=== PATIENT | male | born 1950 | race Caucasian/White ===

== ENCOUNTER 2022-02-20 00:56 | Observation (INO) | payer OTHER, SELFPAY ==
[2022-02-20] VITALS (32 sets, daily range): BP systolic 117–161; BP diastolic 74–99; PULSE 108–135; RESP 11–29; TEMP 36.6–36.7; O2SAT 88–100; BMI 39.2
--- NOTE | ~2022-02-20 | XR_ITS ---
EXAMINATION: XR chest 1V portable DATE: 02/20/2022 02:37 INDICATION: Altered mental status. TECHNIQUE: A single frontal view of the chest was obtained. COMPARISON: Chest single view 06/01/2013 FINDINGS: There is no pneumonia, pleural effusion, or pneumothorax. Cardiomegaly is noted. Epidural e lectrodes are noted. IMPRESSION: 1. Cardiomegaly. Reviewed, dictated and finalized at location A. IMPRESSION: 1. Cardiomegaly.
--- NOTE | ~2022-02-20 | CT_ITS ---
EXAMINATION: CT brain wo con DATE: 02/20/2022 02:53 INDICATION: Syncope. TECHNIQUE: Computed tomography (CT) of the head was performed without intravenous contrast. The mA wa s adjusted according to patient size. Iterative reconstruction technique was employed. The dose-lengt h product was 681.00 mGy-cm. COMPARISON: Head CT 05/29/2013, brain MRI 05/29/2013 FINDINGS: There is no intracranial hemorrhage, acute infarction, or abnormal intracranial mass lesion . The ventricles are normal in size. There are likely changes of ocular lens replacement surgeries. T here is mild mucosal thickening in the paranasal sinuses. The mastoid air cells are normal. IMPRESSION: 1. Normal brain. Reviewed, dictated and finalized at location A. IMPRESSION: 1. Normal brain.
[2022-02-20] MEDS: HALOPERIDOL LACTATE 5 MG/ML VIAL IM (01:10)
[2022-02-20] MEDS: LORazepam INJ (*CRX) 2 MG/ML VIAL IM (01:10)
--- NOTE | 2022-02-20 01:23 | ECG_ITS ---
Measurements Intervals [place] Rate: 120 P: [place]: 0 QRS: 82 QRSD: 106 T: 14 QT: 337 QTc: 476 Interpretive Statements ATRIAL FIBRILLATION WITH RAPID VENTRICULAR RESPONSE INCOMPLETE RIGHT BUNDLE BRANCH BLOCK LOW QRS VOLTAGE IN PRECORDIAL LEADS ABNORMAL ECG NO PREVIOUS ECG AVAILABLE FOR COMPARISON Electronically Signed On 02-20-2022 6:56:01 CDT by Jimmy Bennett D.O.
[2022-02-20] MEDS: SODIUM CHLORIDE 0.9% IV 1,000 ML 999 ML IV CONT (01:50)
--- NOTE | 2022-02-20 02:03 | ED.GENADULT ---
HPI - General Adult General Chief complaint: Alcohol Stated complaint: ETOH INTOXICATION/PASSED OUT Time Seen by Provider: 02/20/22 00:57 Source: EMS and RN notes reviewed Mode of arrival: EMS Limitations: intoxication History of Present Illness HPI narrative: This is a 71 year old male with history of hypertension, atrial fibrillation, and alcohol abuse who presents for evaluation of alcohol intoxication. EMS states patient has drank 2 bottles of whiskey over past 2 days. They report patient was passed out. EMS states patient was aggressive at the scene and PD was there. Related Data Home Medications Medication Instructions Recorded Confirmed aripiprazole 5 mg tablet 5 mg PO DAILY 02/20/22 02/20/22 celecoxib 200 mg capsule 200 mg PO DAILY 02/20/22 02/20/22 duloxetine 60 mg capsule,delayed 60 mg PO DAILY 02/20/22 02/20/22 release metoprolol tartrate 100 mg tablet 100 mg PO BID 02/20/22 02/20/22 omeprazole 20 mg capsule,delayed 20 mg PO BID 02/20/22 02/20/22 release pregabalin 200 mg capsule 200 mg PO TID 02/20/22 02/20/22 Allergies Allergy/AdvReac Type Severity Reaction Status Date / Time No Known Allergies Allergy Unknown Unverified 09/28/17 11:57 Review of Systems Review of Systems: ROS unobtainable: Yes unobtainable due to mental status PMFSH Past Medical History Medical History (Updated 02/20/22 @ 09:42 by Jasmin Baer MD) Atrial fibrillation BPH (benign prostatic hyperplasia) GERD (gastroesophageal reflux disease) Hypertension Seizures Surgical History Surgical History History of appendectomy Family History Family History (Updated 02/20/22 @ 05:57 by SHUBHAM Reed) Mother Cancer Grandparent Cerebrovascular accident Social History Social History (Updated 02/20/22 @ 06:07 by SHUBHAM Reed) Social History: Patient currently lives at home with his Kimberly. I would suspect this would be his surrogate. Patient is currently a full code. Smoking status: Never smoker Alcohol intake: current Alcohol use details: unknown, strong history of ETOH abuse Substance use: unknown Living arrangements: with family Occupation/Education: retired Gender identity (if verbalized by the patient): Male Sexual Orientation (if Verbalized by the Patient): Straight or Heterosexual Spiritual care concerns: No Agree to blood products: Yes Exam Const: General: alert Nutritional Appearance: obese Limitations: behavioral limitations HENMT: Head: normal to inspection Face and sinus: normal facial exam Mouth: Yes Normal oral and palatal mucosa present Eyes: Pupils: Equal, round and reactive pupils present EOM: EOMs intact bilaterally Neck: Neck: normal visual inspection Chest: Chest palpation & inspection: normal inspection of the chest Resp: Effort & Inspection: tachypneic Auscultation: clear to auscultation bilaterally and no crackles Cardio: Rate: tachycardic Rhythm: abnormal rhythm Heart sounds: no murmurs GI: GI Palp: Yes Soft to palpation, No Tenderness to palpation present (GI), No Guarding due to palpation present (GI) and No Rigid due to palpation Auscultation: normal bowel sounds Skin: General skin exam: normal color Rashes: no rashes Wounds: no wounds Neuro: General: moves all extremities Extrem: General: normal to inspection Psych: Appearance: disheveled Speech and movement: Psychomotor agitation in speech present Attitude: Belligerent attititude/behavior present Judgement: Poor judgement present (Psych) Course Reevaluation(s) Reevaluation #1: Patient presented aggressive, belligerent, intoxicated. He had to be chemically restrained with haldol 5 mg IV and ativan 2 mg IV. He eventually calmed down. He is currently now alert and oriented and cooperative. He has been placed on diltiazem drip. Date: 02/20/22 Time: 04:00 Reevaluation #2: Douglas choudhury
[2022-02-20 02:05] LABS: Alanine Aminotransferase 34 U/L (6-50); Albumin Level 5.2 g/dL (3.5-5.1); Alkaline Phosphatase 132 U/L (38-126); Anion Gap 24 mmol/L (8-16); Aspartate Amino Transferase 56 U/L (17-59); Bilirubin,Total 0.7 mg/dL (0.2-1.3); Blood Urea Nitrogen 12 mg/dL (9-20); Calcium 8.2 mg/dL (8.4-10.2); Carbon Dioxide 23 mmol/L (22-30); Chloride 98 mmol/L (98-107); Estimated Glomerular Filt Rate > 60; Glucose 113 mg/dL (65-110); INR 1.1; Potassium 4.2 mmol/L (3.4-5.0); Prothrombin Time 13.2 Seconds (11.1-14.7); Sodium 145 mmol/L (137-145)
[2022-02-20 02:06] LABS: Partial Thromboplastin Time 31.2 SECONDS (22.3-36.8)
[2022-02-20 02:15] LABS: Basophils Percent Auto 0.7 % (0.2-1.2); Eosinophils Absolute Auto 0.2 K/mm3 (0-0.3); Eosinophils Percent Auto 3.9 % (0-4.4); Hematocrit 43.6 % (42.0-52.0); Immature Granulocyte Absolute 0.02 K/mm3 (0.00-0.031); Immature Granulocyte Percent A 0.4 % (0-0.5); Lymphocytes Absolute Auto 1.79 K/mm3 (0.9-3.2); Lymphocytes Percent Auto 33.2 % (18.3-44.2); Mean Corpuscular HGB Conc 32.1 g/dl (32-36); Mean Corpuscular Hemoglobin 31.9 pg (26-34); Mean Corpuscular Volume 99.3 fl (80-100); Mean Platelet Volume 12.5 fl (7.4-10.4); Monocytes Absolute Auto 0.5 K/mm3 (0.1-0.6); Monocytes Percent Auto 9.1 % (2.6-8.5); Neutrophils Absolute Auto 2.8 K/mm3 (1.3-6.7); Neutrophils Percent Auto 52.7 % (45.5-73.1); Platelet Count Result 157 k/mm3 (150-375); Red Blood Count 4.39 M/mm3 (4.6-6.20); Red Cell Distribution Width 18.3 % (11.5-14.5); White Blood Count 5.4 K/mm3 (4.5-10.0)
[2022-02-20 02:16] LABS: Lactic Acid Reflex 6.1 mmol/L (0.7-2.0)
[2022-02-20 02:17] LABS: Troponin I < 0.012 ng/mL (0.000-0.034)
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
[2022-02-20 02:45] LABS: Appearance Urine Clear (Clear); Bilirubin Urine Negative (Negative); Blood Urine Trace-lysed (Negative); Color Urine Amber (Yellow); Glucose Urine UA Negative (Negative); Ketones Urine Negative (Negative); Leukocyte Esterase Ur Negative LEU/UL (Negative); Nitrate Urine Negative (Negative); Protein Urine 3+ mg/dL (Negative)
[2022-02-20 02:48] LABS: Mucus Urine Rare /lpf; RBC Urine 0-2 /hpf (0-2); WBC Urine 0-3 /hpf
[2022-02-20 02:54] LABS: Add Urine Microscopic? YES
--- NOTE | 2022-02-20 02:55 | PC.NURSE ---
Pt taken to CT
[2022-02-20 03:02] LABS: Amphetamine Screen Urine Negative (Negative); Barbiturate Screen Urine Negative (Negative); Benzodiazepines Screen Urine Negative (Negative); Cannabinoid Screen Urine Negative (Negative); Cocaine Screen Urine Negative (Negative); Methadone Screen Urine Negative (Negative); Opiate Screen Urine Negative (Negative); Phencyclidine Screen Urine Negative (Negative)
[2022-02-20] MEDS: dilTIAZem HCl INJ 25 MG/5 ML VIAL 10 MG IV PUSH (03:05)
[2022-02-20] MEDS: dilTIAZem 100 MG/100 ML 100 MG/100 ML BAG IV CONT (03:07)
[2022-02-20 04:07] LABS: NT Pro B Type Natriuretic Pept 66 pg/mL (5-100)
[2022-02-20 04:09] LABS: Ethanol 431 mg/dL (<10)
[2022-02-20 04:51] LABS: Reflex Lactic Acid Yes or No Add Lactic
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
[2022-02-20 05:40] LABS: Lactic Acid 3.3 mmol/L (0.7-2.0)
[2022-02-20] MEDS: THIAMINE HCL INJ 100 MG, FOLIC ACID INJ 1 MG, MULTIVITAMINS-12 INJ VIAL 1 5 ML, MULTIVI... IV CONT (06:13)
[2022-02-20 06:24] LABS: SARS-CoV-2 RNA PCR Negative
[2022-02-20 06:37] LABS: Magnesium 2.2 mg/dL (1.6-2.3)
[2022-02-20 06:45] LABS: Hemoglobin A1C 5.3 % (<5.7)
--- NOTE | 2022-02-20 07:00 | ADMGEN ---
This patient, Hoang Navarro, was admitted to IMU Room 206-02. Patient/family oriented to hospital policies and general routines including ID bracelet, bed and alarms, visiting hours, pain management, procedures, bathroom and other care routines, personal items, smoking policy, room service/diet, and visiting hours. Information on how to activate the Rapid Response Team has been discussed. Patient/Family are encouraged to report perceived risks to care and to ask questions if they do not understand what they are told or what they should do.
[2022-02-20 08:42] LABS: Alanine Aminotransferase 35 U/L (6-50); Albumin Level 4.7 g/dL (3.5-5.1); Alkaline Phosphatase 124 U/L (38-126); Anion Gap 19 mmol/L (8-16); Aspartate Amino Transferase 56 U/L (17-59); Bilirubin,Total 0.8 mg/dL (0.2-1.3); Blood Urea Nitrogen 12 mg/dL (9-20); Calcium 7.7 mg/dL (8.4-10.2); Carbon Dioxide 25 mmol/L (22-30); Chloride 101 mmol/L (98-107); Estimated CRCL calculation 109 ml/min; Estimated Glomerular Filt Rate > 60; Glucose 105 mg/dL (65-110); Potassium 4.5 mmol/L (3.4-5.0); Sodium 145 mmol/L (137-145)
[2022-02-20 08:49] LABS: Basophils Percent Auto 0.6 % (0.2-1.2); Eosinophils Absolute Auto 0.2 K/mm3 (0-0.3); Eosinophils Percent Auto 2.4 % (0-4.4); Hematocrit 41.3 % (42.0-52.0); Hemoglobin 12.7 g/dL (14.0-18.0); Immature Granulocyte Absolute 0.06 K/mm3 (0.00-0.031); Immature Granulocyte Percent A 0.9 % (0-0.5); Lymphocytes Absolute Auto 0.92 K/mm3 (0.9-3.2); Mean Corpuscular HGB Conc 30.8 g/dl (32-36); Mean Corpuscular Hemoglobin 31.3 pg (26-34); Mean Corpuscular Volume 101.7 fl (80-100); Mean Platelet Volume 12.5 fl (7.4-10.4); Monocytes Absolute Auto 0.6 K/mm3 (0.1-0.6); Monocytes Percent Auto 8.4 % (2.6-8.5); Neutrophils Absolute Auto 4.8 K/mm3 (1.3-6.7); Neutrophils Percent Auto 73.7 % (45.5-73.1); Platelet Count Result 120 k/mm3 (150-375); Red Blood Count 4.06 M/mm3 (4.6-6.20); Red Cell Distribution Width 18.6 % (11.5-14.5); White Blood Count 6.6 K/mm3 (4.5-10.0)
--- NOTE | 2022-02-20 09:07 | PM.CNCAR ---
Assessment and Plan Assessment and plan (1) Atrial fibrillation with rapid ventricular response: Code(s): I48.91 - Unspecified atrial fibrillation Status: Acute Assessment and Plan: History of what sounds like chronic atrial fibrillation which has been well managed with metoprolol as an outpatient. He presented to the ED with alcohol intoxication and was found to be in atrial fibrillation with RVR in that setting. He has been placed on a diltiazem drip which has provided some rate control. Discontinue diltiazem Will shift him back to his home metoprolol since he is rate controlled well with this PRN IV metoprolol for sustained HR >140bpm Cardiomegaly on CXR, some history of CHF symptoms. Check echo. No a/c due to history of significant hemorrhoidal bleeding. He is also actively drinking alcohol, so likely not appropriate for systemic a/c. Can consider outpatient referral for [facility]AAO. Will review prior cardiology records from the [place] when available. (2) Hypertension: Code(s): I10 - Essential (primary) hypertension Status: Acute Assessment and Plan: Add losartan 25mg daily History of Present Illness History of Present Illness Consult date/time: 02/20/22 09:07 Requesting physician: Jasmin Baer MD Consult reason: atrial fibrillation Reason For Visit: iol Narrative: Mr. Navarro is a 71-year-old male with a medical history of hypertension, atrial fibrillation, and chronic lower back pain. This is a patient who presented to the emergency department via EMS because of alcohol intoxication. He drink two fifths of whiskey over the past 2 days because he has been having a lot of worry and anxiety about his daughter who lives in [place]. Patient states that ordinarily he does not drink that much alcohol. He does have a history atrial fibrillation dating to 2007. Patient states that he has been rate controlled with metoprolol for quite some time. He denies any history cardioversion or other rhythm control strategies. He currently is not on any anticoagulation. He tells me his jde developer took him off of his anticoagulation about 3 years ago because apparently he had recurrent problems with bleeding hemorrhoids in significant anemia because of this. He denies any other cardiac history. He denies palpitations, chest pain, orthopnea. He does endorse dyspnea with exertion which has been he persistent for number of years. Endorses chronic lower extremity edema. In the emergency department his EKG showed atrial fibrillation with rapid ventricular response with a rate of 120 beats per minute. He was placed on diltiazem drip at that time. Review of Systems Constitutional: Constitutional: Denies chills, Denies fever(s), Denies headache(s) and Denies malaise Eyes: Eyes: Denies change in vision ENT: Reports Normal hearing present, Denies dizziness, Denies headache(s) and Denies hearing loss Cardiovascular: Cardiovascular: Denies chest pain, Denies chest pain at rest, Denies chest pain with activity, Denies syncope, Reports pedal edema, Reports leg edema, Denies palpitations, Reports dyspnea and Reports dyspnea on exertion Respiratory: Respiratory: Denies cough, Denies dyspnea, Denies dyspnea on exertion and Denies wheezing Gastrointestinal: Gastrointestinal: Denies abdominal pain, Denies constipation and Denies diarrhea Genitourinary: Genitourinary: Denies hematuria and Denies dysuria Musculoskeletal: Musculoskeletal: Reports back pain, Denies myalgias, Denies arthralgias and Denies muscle cramps Integumentary/Breasts: Skin/Breast: Denies wounds Neurologic: Reports Normal hearing present, Denies confusion, Denies dizziness, Denies syncope and Denies headache(s) Psychiatric: Psychiatric: Denies anxiety, Denies confusion and Denies depression Endocrine: Endocrine: Denies cold intolerance, Denies flushing, Denies heat intolerance and Denies palpitations Hematologic/Lymphatic: Hematologic/Lymphatic:
[2022-02-20] MEDS: HYDROcodone/acetaminophen (*CRX) 5-325 MG TABLET 1 TAB PO (11:32)
[2022-02-20] MEDS: METOPROLOL TARTRATE 50 MG TAB PO (11:33)
[2022-02-20] MEDS: chlordiazePOXIDE (*CRX) 25 MG CAPSULE PO (11:33)
[2022-02-20] MEDS: ENOXAPARIN 40 MG/0.4 ML SYRINGE SUB-Q (11:34)
[2022-02-20] MEDS: FOLIC ACID 1 MG TABLET PO (11:34)
[2022-02-20] MEDS: THIAMINE HCL 100 MG TABLET PO (11:34)
--- NOTE | 2022-02-20 13:29 | PC.NURSE ---
Patient requesting to leave AMA. Patient educated on risks of leaving AMA. Patient verbalized understanding. Patient oriented at this time. AMA paper provided and signed by patient. MD Eliel milan.
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
--- NOTE | 2022-02-27 13:31 | PC.NURSE ---
Blood cx was found to be positive for gram positive cocci in clusters. Spoke to Dr. Julian regarding results. He would like results sent to patient's PCP. 1000 am 02/26. Unable to reach patient. Attempted to call patient. Left message for patient to return call.
--- NOTE | 2022-03-05 07:09 | PC.NURSE ---
unable to reach patient. Patient has not returned phone calls.
--- NOTE | 2022-03-12 09:48 | PC.NURSE ---
Patient returned call. HAs new physician at [facility]. Does not remember name. Gave me fax number. Faxed labs with a detailed note regarding his BC.
== END 2022-02-20 14:24 | disposition left against medical advice (07) ==
LOC: ANHED 01:19 → ANHLDR 05:58 → ANHIMU 06:05
PROVIDERS: Nurse Practitioner; Admitting Provider Internal Medicine; Emergency Provider General Practice; Visit Provider Internal Medicine
DX: F10.229 Alcohol dependence with intoxication, unspecified (principal); Y90.8 Blood alcohol level of 240 mg/100 ml or more; I48.91 Unspecified atrial fibrillation; N40.0 Benign prostatic hyperplasia without lower urinary tract symptoms; K21.9 Gastro-esophageal reflux disease without esophagitis; R00.0 Tachycardia, unspecified; R09.02 Hypoxemia; R14.0 Abdominal distension (gaseous); R74.02 Elevation of levels of lactic acid dehydrogenase [LDH]; I10 Essential (primary) hypertension; I45.10 Unspecified right bundle-branch block; I51.7 Cardiomegaly; R45.6 Violent behavior; Z20.822 Contact with and (suspected) exposure to COVID-19; F43.10 Post-traumatic stress disorder, unspecified; E66.9 Obesity, unspecified; R94.31 Abnormal electrocardiogram [ECG] [EKG]; Z53.29 Procedure and treatment not carried out because of patient's decision for other reasons; Z68.39 Body mass index [BMI] 39.0-39.9, adult; Z86.69 Personal history of other diseases of the nervous system and sense organs; Z79.899 Other long term (current) drug therapy; M54.50 Low back pain, unspecified
CPT/HCPCS: 36415; 70450; 71045; 80053; 80307; 81001; 83036; 83605; 83735; 83880; 84443; 84484; 85025; 85610; 85730; 87040; 87147; 87181; 87186; 93005; 96361; 96365; 96366; 96372; 96375; 99285; A9270; C9803; G0378; J1630; J1650; J2060; J3411; J3475; J7030; U0003; U0005

== ENCOUNTER 2022-07-29 14:11 | Inpatient (IN) | payer OTHER, SELFPAY ==
--- NOTE | ~2022-07-29 | XR_ITS ---
EXAM: XR elbow LT min 3V DATE: 07/29/2022 19:07 HISTORY: elbow injury . COMPARISON: None. FINDINGS: Normal mineralization. No fracture or dislocation. No lytic or blastic lesion. Degenerativ e change at the elbow joint. Scattered enthesopathy. No erosion or periosteal change. Soft tissue swe lling over the olecranon. Linear radiopaque foreign body in the medial forearm soft tissues. Small el bow joint effusion. IMPRESSION: No acute osseous finding detected in in the left elbow, noting that the presence of a sma ll elbow joint effusion may accompany occult radial head fractures. Linear radiopaque foreign body, p ossible needle fragment, in the medial forearm soft tissues. Reviewed, dictated and finalized at location K. ECTOR METAL FABRICATING IMPRESSION: No acute osseous finding detected in in the left elbow, noting that the presence of a small elbow joint effusion may accompany occult radial head fractures. Linear radiopaque foreign body, possible needle fragment, in the med ial forearm soft tissues.
--- NOTE | ~2022-07-29 | XR_ITS ---
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 RESULT: Lines, tubes, and devices: Epidural electrodes over the lower thoracic spine. Vertebroplasty cement at the thoracolumbar junction. Lungs and pleura: Mild senescent change. Emphysematous change. Cardiomediastinal silhouette: Stable. Other: No acute osseous or upper abdominal finding. IMPRESSION: No acute cardiopulmonary process. Reviewed, dictated and finalized at location K. MECHANIC
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
--- NOTE | ~2022-07-29 | US_ITS ---
Limited Abdominal Sonogram: Real-time sonographic imaging of the right upper quadrant was performed. Clinical History: Alcoholism, transaminitis Findings: The liver appears echogenic, with no evidence of mass lesion or bile duct dilatation. It m easures 20.8 cm in length. Main portal vein demonstrates normal direction of flow. The gallbladder is well distended, and contains several small echogenic gallstones. Gallbladder wall is borderline thic kened to 4 mm. The common bile duct measures 4 mm. The visualized pancreas, aorta, and IVC are unrem arkable. Impression: Diffuse fatty infiltration of liver with associated hepatomegaly. Cholelithiasis. Borderline gallbladder wall thickening. Correlate clinically for acute cholecystitis. Consider HIDA s can as indicated. Reviewed, dictated and finalized at location . IC CHARGE NURSE Impression: Diffuse fatty infiltration of liver with associated hepatomegaly. Cholelithiasis. Borderline gallbladder wall thickening. Correlate clinically for acute cholecys titis. Consider HIDA scan as indicated.
--- NOTE | 2022-07-29 14:14 | ECG_ITS ---
Measurements Intervals [place] Rate: 118 P: [place]: 0 QRS: 81 QRSD: 113 T: 23 QT: 336 QTc: 472 Interpretive Statements ATRIAL FIBRILLATION WITH RAPID VENTRICULAR RESPONSE BASELINE ARTIFACT- III, AVR, AVL, AVF, V1 ABNORMAL ECG COMPARED TO ECG 02/20/2022 02:42:24 NO SIGNIFICANT CHANGES Electronically Signed On 07-30-2022 6:32:34 CARE ATTENDANT by Jimmy Bennett D.O.
--- NOTE | 2022-07-29 14:42 | PC.NURSE ---
Pt is intoxicated and uncooperative. Unable to obtain vitals or information. Pt does not want a female nurse touching him. Pt states he is depressed denied SI/HI.
[2022-07-29 15:01] VITALS: BP 161/92; PULSE 112; RESP 15; O2SAT 99
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
--- NOTE | 2022-07-29 16:05 | PC.NURSE ---
SECURITY IN ROOM WITH PT.
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
[2022-07-29] MEDS: SODIUM CHLORIDE 0.9% IV 1,000 ML 999 ML IV CONT (17:43)
[2022-07-29] MEDS: LIDOCAINE HCL 1% PF 30 ML VIAL 5 ML INFILTRATE (17:43)
[2022-07-29] MEDS: LIDOCAINE HCL 1% LOCAL INJ 20 ML VIAL (17:43)
[2022-07-29 18:26] LABS: Basophils Percent Auto 0.3 % (0.2-1.2); Eosinophils Percent Auto 0.4 % (0-4.4); Hematocrit 38.5 % (42.0-52.0); Hemoglobin 12.3 g/dL (14.0-18.0); Immature Granulocyte Absolute 0.03 K/mm3 (0.00-0.031); Immature Granulocyte Percent A 0.4 % (0-0.5); Immature Platelet Fraction Pct 7.1 % (0.9-11.2); Lymphocytes Absolute Auto 0.59 K/mm3 (0.9-3.2); Lymphocytes Percent Auto 8.5 % (18.3-44.2); Mean Corpuscular HGB Conc 31.9 g/dl (32-36); Mean Corpuscular Hemoglobin 32.4 pg (26-34); Mean Corpuscular Volume 101.3 fl (80-100); Monocytes Absolute Auto 0.5 K/mm3 (0.1-0.6); Monocytes Percent Auto 7.2 % (2.6-8.5); Neutrophils Absolute Auto 5.8 K/mm3 (1.3-6.7); Neutrophils Percent Auto 83.2 % (45.5-73.1); Platelet Count Result 71 k/mm3 (150-375)
[2022-07-29 18:52] LABS: Alanine Aminotransferase 65 U/L (6-50); Alkaline Phosphatase 128 U/L (38-126); Anion Gap 20 mmol/L (8-16); Aspartate Amino Transferase 107 U/L (17-59); Bilirubin,Total 2.1 mg/dL (0.2-1.3); Blood Urea Nitrogen 12 mg/dL (9-20); Calcium 8.2 mg/dL (8.4-10.2); Carbon Dioxide 20 mmol/L (22-30); Chloride 94 mmol/L (98-107); Estimated Glomerular Filt Rate > 60; Glucose 93 mg/dL (65-110); Potassium 3.9 mmol/L (3.4-5.0); Sodium 134 mmol/L (137-145)
[2022-07-29 18:53] LABS: Ethanol 318 mg/dL (<10)
--- NOTE | 2022-07-29 18:54 | PC.NURSE ---
pT CONTINUES TO INSULT STAFF WHEN ATTEMPTING TO GO IN AND HELP PATIENT. PT CONTINUES TO STATE HE DOESNT WANT MEN HIS ROOM. SECURITY AT BEDSIDE.
[2022-07-29 19:08] LABS: Influenza A QL RT-PCR Negative (Negative); Influenza B QL RT-PCR Negative (Negative); RSV RNA, RT-PCR Negative (Negative); SARS-CoV-2 RNA PCR Negative
[2022-07-29] MEDS: KETOROLAC 15 MG/ML VIAL (*BKC) IV PUSH (19:23)
[2022-07-29] MEDS: AMOXICILLIN/CLAVULANATE K 875-125 MG TAB 1 TABLET PO (21:01)
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
[2022-07-29 21:36] VITALS: BP 185/87; PULSE 120; RESP 20; TEMP 36.9; O2SAT 98
[2022-07-29 21:37] VITALS: O2SAT 99
[2022-07-29 22:10] VITALS: PULSE 122
--- NOTE | 2022-07-29 22:19 | PC.NURSE ---
This patient, Hoang Navarro, was admitted to 3 Medical Room 344-01. Patient/family oriented to hospital policies and general routines including ID bracelet, bed and alarms, visiting hours, pain management, procedures, bathroom and other care routines, personal items, smoking policy, room service/diet, and visiting hours. Information on how to activate the Rapid Response Team has been discussed. Patient/Family are encouraged to report perceived risks to care and to ask questions if they do not understand what they are told or what they should do. Pt is alcoholic drinking 2 fifths of Kumar Davis daily, He if very anxious and shaking and very suspicious.
[2022-07-29] MEDS: ALPRAZolam (*CRX) 0.25 MG TABLET PO (22:45)
[2022-07-30] VITALS (17 sets, daily range): BP systolic 133–188; BP diastolic 66–92; PULSE 75–126; RESP 16–20; TEMP 36.3–37.3; O2SAT 95–99; BMI 40.8
[2022-07-30] MEDS: METOPROLOL TARTRATE 50 MG TAB 100 MG PO ×3 (00:54→20:21)
[2022-07-30] MEDS: CALCIUM CARBONATE (TUMS) 500 MG (200 MG ELEMENTAL) PO ×3 (00:54→17:13)
[2022-07-30] MEDS: traZODone HCL 50 MG TABLET 100 MG PO ×2 (00:54→20:21)
[2022-07-30 04:05] LABS: Appearance Urine Clear (Clear); Bilirubin Urine 1+ (Negative); Blood Urine Trace-intact (Negative); Color Urine Yellow (Yellow); Glucose Urine UA Negative (Negative); Ketones Urine 4+ mg/dL (Negative); Leukocyte Esterase Ur Negative LEU/UL (Negative); Nitrate Urine Negative (Negative); Protein Urine 2+ mg/dL (Negative); Specific Grav Ur 1.025 (1.001-1.035); Urobilinogen Urine 0.2 mg/dL (<2.0)
[2022-07-30 04:17] LABS: Mucus Urine Rare /lpf; RBC Urine 0-2 /hpf (0-2); WBC Urine 0-3 /hpf
[2022-07-30 04:22] LABS: Add Urine Microscopic? YES
[2022-07-30] MEDS: DEXTROSE 5%/0.45% SOD CHL 1,000 ML 125 ML IV CONT ×2 (05:52→17:10)
[2022-07-30] MEDS: chlordiazePOXIDE (*CRX) 25 MG CAPSULE 50 MG PO ×4 (05:52→23:27)
[2022-07-30] MEDS: PANTOPRAZOLE 40 MG TABLET PO ×2 (05:56→17:10)
[2022-07-30 06:41] LABS: Glucose Point of Care 98 mg/dl (65-105)
[2022-07-30] MEDS: DULoxetine HCL 60 MG CAPSULE.DR PO ×2 (08:23→17:10)
[2022-07-30] MEDS: THIAMINE HCL 200 MG/2 ML VIAL 100 MG IV PUSH (08:23)
[2022-07-30] MEDS: ONDANSETRON INJ 4 MG/2 ML VIAL IV PUSH (08:31)
[2022-07-30 09:11] LABS: Hematocrit 36.2 % (42.0-52.0); Hemoglobin 11.7 g/dL (14.0-18.0); Immature Platelet Fraction Pct 8.7 % (0.9-11.2); Mean Corpuscular HGB Conc 32.3 g/dl (32-36); Mean Corpuscular Hemoglobin 32.1 pg (26-34); Mean Corpuscular Volume 99.2 fl (80-100); Mean Platelet Volume 12.5 fl (7.4-10.4); Platelet Count Result 46 k/mm3 (150-375); Red Blood Count 3.65 M/mm3 (4.6-6.20); Red Cell Distribution Width 15.4 % (11.5-14.5); White Blood Count 6.4 K/mm3 (4.5-10.0)
[2022-07-30] MEDS: LORazepam INJ (*CRX) 2 MG/ML VIAL IV PUSH ×2 (09:11→21:26)
[2022-07-30] MEDS: PREGABALIN (*CRX) 50 MG CAPSULE 200 MG PO ×3 (09:11→17:11)
[2022-07-30 10:05] LABS: Alanine Aminotransferase 68 U/L (6-50); Alkaline Phosphatase 117 U/L (38-126); Anion Gap 14 mmol/L (8-16); Aspartate Amino Transferase 108 U/L (17-59); Bilirubin,Total 3.4 mg/dL (0.2-1.3); Blood Urea Nitrogen 12 mg/dL (9-20); Calcium 8.9 mg/dL (8.4-10.2); Carbon Dioxide 26 mmol/L (22-30); Chloride 89 mmol/L (98-107); Estimated CRCL calculation 124 ml/min; Estimated Glomerular Filt Rate > 60; Glucose 83 mg/dL (65-110); Potassium 2.7 mmol/L (3.4-5.0); Sodium 129 mmol/L (137-145)
[2022-07-30] MEDS: POTASSIUM CHLORIDE 20 MEQ TABLET 40 MEQ PO (12:41)
[2022-07-30 12:45] LABS: Glucose Point of Care 83 mg/dl (65-105)
[2022-07-30] MEDS: POTASSIUM CHLORIDE 20 MEQ TABLET PO (13:16)
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
[2022-07-30 16:51] LABS: Glucose Point of Care 89 mg/dl (65-105)
--- NOTE | 2022-07-30 21:26 | PC.NURSE ---
Patient increasingly restless, up in chair. Pulled out 2 IVs. Experiencing visual hallucinations and very suspicious of staff. Pt placed in bed, reoriented, new IV placed, prn Ativan given.
--- NOTE | 2022-07-30 22:00 | PC.NURSE ---
Pt becoming increasingly verbally aggressive, restless, climbing over rails of bed. Very weak, unable to bear weight or turn self in bed. Suspicious of staff. Call placed to Ha[facility] Montano and order received for 1mg IV Ativan.
[2022-07-30] MEDS: LORazepam INJ (*CRX) 2 MG/ML VIAL 1 MG IV PUSH (22:19)
[2022-07-30 23:32] LABS: Glucose Point of Care 145 mg/dl (65-105)
[2022-07-31] VITALS (11 sets, daily range): BP systolic 115–158; BP diastolic 60–76; PULSE 73–109; RESP 18–22; TEMP 36.6–36.8; O2SAT 95–99
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
[2022-07-31] MEDS: OLANZapine 5 MG, WATER, STERILE FOR INJECTION 2.1 ML IM (00:24)
--- NOTE | 2022-07-31 02:25 | PC.NURSE ---
Pt increasingly agitated, physically and verbally aggressive, unable to place IV, experiencing visual and auditory hallucinations. Call placed to Dr. Culp with order received for 5mg IM haldol.
[2022-07-31] MEDS: HALOPERIDOL LACTATE 5 MG/ML VIAL IM ×2 (02:31→22:50)
[2022-07-31] MEDS: LORazepam INJ (*CRX) 2 MG/ML VIAL IV PUSH ×4 (06:03→22:08)
[2022-07-31 06:21] LABS: Hematocrit 39.1 % (42.0-52.0); Hemoglobin 11.9 g/dL (14.0-18.0); Immature Platelet Fraction Pct 10.4 % (0.9-11.2); Mean Corpuscular HGB Conc 30.4 g/dl (32-36); Mean Corpuscular Hemoglobin 31.6 pg (26-34); Mean Platelet Volume 12.2 fl (7.4-10.4); Platelet Count Result 35 k/mm3 (150-375); Red Blood Count 3.76 M/mm3 (4.6-6.20); Red Cell Distribution Width 15.7 % (11.5-14.5); White Blood Count 4.4 K/mm3 (4.5-10.0)
[2022-07-31 06:27] LABS: Glucose Point of Care 88 mg/dl (65-105)
[2022-07-31 06:34] LABS: Alanine Aminotransferase 60 U/L (6-50); Albumin Level 4.2 g/dL (3.5-5.1); Alkaline Phosphatase 103 U/L (38-126); Anion Gap 7 mmol/L (8-16); Aspartate Amino Transferase 85 U/L (17-59); Bilirubin,Total 1.6 mg/dL (0.2-1.3); Blood Urea Nitrogen 13 mg/dL (9-20); Calcium 9.2 mg/dL (8.4-10.2); Carbon Dioxide 31 mmol/L (22-30); Chloride 98 mmol/L (98-107); Estimated CRCL calculation 101 ml/min; Estimated Glomerular Filt Rate > 60; Glucose 97 mg/dL (65-110); Potassium 3.3 mmol/L (3.4-5.0); Sodium 136 mmol/L (137-145)
[2022-07-31 06:39] LABS: INR 1.1; Prothrombin Time 13.6 Seconds (11.1-14.7)
[2022-07-31 06:58] LABS: Hepatitis B Surface Antigen Negative (Negative)
[2022-07-31 07:04] LABS: HAV RESULT Negative (Negative); Hepatitis B Core IgM Result Negative (Negative)
[2022-07-31 07:16] LABS: Hepatitis C Virus Antibody Negative (Negative)
[2022-07-31 08:16] LABS: Band Neutrophils Percent 7 % (0-6); Basophils Absolute Manual 0.08 K/mm3 (0.0-0.1); Basophils Percent Manual 2 % (0-1); Eosinophils Absolute Manual 0.13 K/mm3 (0.02-0.5); Eosinophils Percent Manual 3 % (0-4); Lymphocytes Absolute Manual 0.52 K/mm3 (1.1-4.5); Monocytes Absolute Manual 0.13 K/mm3 (0.1-0.90); Monocytes Percent Manual 3 % (3-9); Neutrophils Absolute Manual 3.52 K/mm3 (1.3-6.7); Neutrophils Percent Manual 73 % (46-73); Platelet Estimate Decreased (Adequate); Total Cells Counted 100
[2022-07-31 08:17] LABS: Schistocytes None Seen (NORMAL)
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
[2022-07-31 12:26] LABS: Glucose Point of Care 108 mg/dl (65-105)
[2022-07-31] MEDS: DULoxetine HCL 60 MG CAPSULE.DR PO ×2 (13:21→16:53)
[2022-07-31] MEDS: METOPROLOL TARTRATE 50 MG TAB 100 MG PO (13:21)
[2022-07-31] MEDS: THIAMINE HCL 200 MG/2 ML VIAL 100 MG IV PUSH (13:21)
[2022-07-31] MEDS: PREGABALIN (*CRX) 50 MG CAPSULE 200 MG PO ×2 (13:22→16:53)
[2022-07-31] MEDS: chlordiazePOXIDE (*CRX) 25 MG CAPSULE 50 MG PO ×2 (13:22→17:01)
[2022-07-31 16:47] LABS: Glucose Point of Care 99 mg/dl (65-105)
[2022-07-31] MEDS: DEXTROSE 5%/0.45% SOD CHL 1,000 ML 125 ML IV CONT (16:52)
[2022-07-31] MEDS: PANTOPRAZOLE 40 MG TABLET PO (16:53)
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
--- NOTE | 2022-07-31 23:59 | P.PNCROSS_ITS ---
Event Note Event Note Event Note: the patient was given multiple medications for alcohol withdrawal. The patient continues to be aggressive towards the staff. The patient is having visual hallucinations. I did call the liquid yeast supervisor who agrees that the patient should be in ICU on a Precedex drip. I have ordered loading dose as well so drip.
[2022-08-01] VITALS (27 sets, daily range): BP systolic 122–159; BP diastolic 54–94; PULSE 86–124; RESP 18–29; TEMP 36.6–38; O2SAT 83–100
[2022-08-01 00:18] LABS: Glucose Point of Care 127 mg/dl (65-105)
--- NOTE | 2022-08-01 00:40 | PC.NURSE ---
Darling Navarro () notified of patient condition and need to transfer to ICU for medication.
--- NOTE | 2022-08-01 01:03 | PC.NURSE ---
This patient, Hoang Navarro, was received from [facility] on 08/01/22 at 0103. Report received from AHMET Mayberry. Patient/family oriented to unit policies and routines.
[2022-08-01] MEDS: dexmedeTOMIDine 400 MCG/100 ML 400 MCG/100 ML BAG 7.8 MCG IV CONT (01:15)
[2022-08-01] MEDS: DEXTROSE 5%/0.45% SOD CHL 1,000 ML 125 ML IV CONT (01:45)
[2022-08-01 04:10] LABS: Basophils Percent Auto 0.3 % (0.2-1.2); Eosinophils Absolute Auto 0.2 K/mm3 (0-0.3); Eosinophils Percent Auto 5.9 % (0-4.4); Hematocrit 36.5 % (42.0-52.0); Hemoglobin 11.3 g/dL (14.0-18.0); Immature Granulocyte Absolute 0.04 K/mm3 (0.00-0.031); Immature Granulocyte Percent A 1.1 % (0-0.5); Immature Platelet Fraction Pct 12.3 % (0.9-11.2); Lymphocytes Absolute Auto 0.45 K/mm3 (0.9-3.2); Lymphocytes Percent Auto 12.7 % (18.3-44.2); Mean Corpuscular Hemoglobin 31.7 pg (26-34); Mean Corpuscular Volume 102.2 fl (80-100); Mean Platelet Volume 13.2 fl (7.4-10.4); Monocytes Absolute Auto 0.5 K/mm3 (0.1-0.6); Monocytes Percent Auto 13.2 % (2.6-8.5); Neutrophils Absolute Auto 2.4 K/mm3 (1.3-6.7); Neutrophils Percent Auto 66.8 % (45.5-73.1); Platelet Count Result 33 k/mm3 (150-375); Red Blood Count 3.57 M/mm3 (4.6-6.20); Red Cell Distribution Width 15.7 % (11.5-14.5); White Blood Count 3.6 K/mm3 (4.5-10.0)
[2022-08-01 04:27] LABS: Alanine Aminotransferase 60 U/L (6-50); Albumin Level 3.8 g/dL (3.5-5.1); Alkaline Phosphatase 96 U/L (38-126); Anion Gap 6 mmol/L (8-16); Aspartate Amino Transferase 78 U/L (17-59); Blood Urea Nitrogen 16 mg/dL (9-20); Calcium 8.6 mg/dL (8.4-10.2); Carbon Dioxide 32 mmol/L (22-30); Chloride 99 mmol/L (98-107); Estimated CRCL calculation 119 ml/min; Estimated Glomerular Filt Rate > 60; Glucose 125 mg/dL (65-110); Magnesium 1.8 mg/dL (1.6-2.3); Sodium 137 mmol/L (137-145)
[2022-08-01] MEDS: POTASSIUM CHLORIDE INJ 40 MEQ in SODIUM CHLORIDE 0.9% IV 500 ML 130 MEQ IVPB (08:27)
[2022-08-01] MEDS: KCL 20 MEQ/D5/0.45% SOD CHL 1,000 ML 125 ML IV CONT ×2 (08:27→16:23)
[2022-08-01 08:52] LABS: Ammonia 15 umol/L (9-30)
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
[2022-08-01 10:42] LABS: Alveolar/Arterial O2 Gradient 106.3 mmHg; Base Excess ABG 0.9 mEq/l (+/-2.0); Fractional Inspired Oxygen 40 %; HCO3 ABG 27.7 mEq/l (22.0-26.0); Oxygen Content ABG 16.9 %vol (16.0-22.0); Oxygen Saturation ABG 97.9 % (95.0-100.0); Oxyhemoglobin 96.6 % THb (90.0-100.0); PO2 ABG 116.8 mmHg (80.0-100.0); PO2 FiO2 Ratio Arterial Blood 2.92 %; Total Hemoglobin 12.3 g/dL (12.0-18.0); pH ABG 7.328 (7.350-7.450)
[2022-08-01 10:45] LABS: Device SIMPLE MASK; Modified Allen's Test Pass; Site Drawn LEFT RADIAL
[2022-08-01] MEDS: THIAMINE HCL 200 MG/2 ML VIAL 100 MG IV PUSH (10:54)
[2022-08-01 11:57] LABS: Glucose Point of Care 133 mg/dl (65-105)
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
--- NOTE | 2022-08-01 14:43 | PM.EVENT ---
Event Note Event Note Event Note: I just check the results of the ABG done earlier showed mild hypercarbia and acidosis. Patient was on sedatives earlier which have been on hold. I will repeat ABG now and if it is not any better then will try BiPAP for some time until patient's mental status is improved
[2022-08-01 14:55] LABS: Anion Gap 8 mmol/L (8-16); Blood Urea Nitrogen 15 mg/dL (9-20); Calcium 8.2 mg/dL (8.4-10.2); Carbon Dioxide 30 mmol/L (22-30); Chloride 100 mmol/L (98-107); Estimated CRCL calculation 137 ml/min; Estimated Glomerular Filt Rate > 60; Glucose 121 mg/dL (65-110); Potassium 3.7 mmol/L (3.4-5.0); Sodium 138 mmol/L (137-145)
[2022-08-01 14:57] LABS: Alveolar/Arterial O2 Gradient 180.2 mmHg; Base Excess ABG 2.6 mEq/l (+/-2.0); Fractional Inspired Oxygen 40 %; HCO3 ABG 30.8 mEq/l (22.0-26.0); Oxygen Content ABG 16.4 %vol (16.0-22.0); Oxygen Saturation ABG 93.6 % (95.0-100.0); Oxyhemoglobin 93.2 % THb (90.0-100.0); PO2 ABG 77.6 mmHg (80.0-100.0); PO2 FiO2 Ratio Arterial Blood 1.94 %; Total Hemoglobin 12.5 g/dL (12.0-18.0)
[2022-08-01 15:00] LABS: Device VENTURI MASK; Modified Allen's Test Pass; PCO2 ABG 65.8 mmHg (35.0-45.0); Site Drawn LEFT RADIAL; pH ABG 7.288 (7.350-7.450)
[2022-08-01 17:08] LABS: Alveolar/Arterial O2 Gradient 92.7 mmHg; Base Excess ABG 2.7 mEq/l (+/-2.0); Fractional Inspired Oxygen 30 %; Oxygen Content ABG 16.5 %vol (16.0-22.0); Oxygen Saturation ABG 92.9 % (95.0-100.0); Oxyhemoglobin 92.4 % THb (90.0-100.0); PCO2 ABG 51.6 mmHg (35.0-45.0); PO2 ABG 68.4 mmHg (80.0-100.0); PO2 FiO2 Ratio Arterial Blood 2.28 %; Total Hemoglobin 12.7 g/dL (12.0-18.0); pH ABG 7.367 (7.350-7.450)
[2022-08-01 17:11] LABS: Device BIPAP; Modified Allen's Test Pass; Site Drawn LEFT RADIAL
[2022-08-01 17:12] LABS: Expiratory Pressure 7 cmH2O; Inspiratory Pressure 14 cmH2O
[2022-08-01] MEDS: METOPROLOL TARTRATE INJ 5 MG/5 ML VIAL IV PUSH (17:46)
[2022-08-01 17:59] LABS: Glucose Point of Care 109 mg/dl (65-105)
[2022-08-01 23:09] LABS: Glucose Point of Care 97 mg/dl (65-105)
[2022-08-02] VITALS (21 sets, daily range): BP systolic 100–152; BP diastolic 55–94; PULSE 53–118; RESP 18–26; TEMP 35.9–38.3; O2SAT 97–100
[2022-08-02] MEDS: KCL 20 MEQ/D5/0.45% SOD CHL 1,000 ML 125 ML IV CONT (00:27)
[2022-08-02 03:40] LABS: Hematocrit 39.4 % (42.0-52.0); Hemoglobin 12.2 g/dL (14.0-18.0); Immature Platelet Fraction Pct 11.8 % (0.9-11.2); Mean Corpuscular Hemoglobin 32.9 pg (26-34); Mean Corpuscular Volume 106.2 fl (80-100); Mean Platelet Volume 12.4 fl (7.4-10.4); Platelet Count Result 48 k/mm3 (150-375); Red Blood Count 3.71 M/mm3 (4.6-6.20); Red Cell Distribution Width 15.9 % (11.5-14.5); White Blood Count 2.9 K/mm3 (4.5-10.0)
[2022-08-02 04:03] LABS: Alanine Aminotransferase 63 U/L (6-50); Albumin Level 3.9 g/dL (3.5-5.1); Alkaline Phosphatase 97 U/L (38-126); Anion Gap 8 mmol/L (8-16); Aspartate Amino Transferase 76 U/L (17-59); Bilirubin,Total 1.1 mg/dL (0.2-1.3); Blood Urea Nitrogen 12 mg/dL (9-20); Calcium 8.5 mg/dL (8.4-10.2); Carbon Dioxide 29 mmol/L (22-30); Chloride 98 mmol/L (98-107); Estimated CRCL calculation 137 ml/min; Estimated Glomerular Filt Rate > 60; Glucose 117 mg/dL (65-110); Magnesium 1.7 mg/dL (1.6-2.3); Potassium 3.4 mmol/L (3.4-5.0); Sodium 135 mmol/L (137-145)
[2022-08-02 06:01] LABS: Glucose Point of Care 104 mg/dl (65-105)
[2022-08-02 07:57] LABS: Glucose Point of Care 123 mg/dl (65-105)
[2022-08-02] MEDS: DULoxetine HCL 60 MG CAPSULE.DR PO ×2 (08:19→17:00)
[2022-08-02] MEDS: PANTOPRAZOLE 40 MG TABLET PO ×2 (08:19→17:00)
[2022-08-02] MEDS: FOLIC ACID 1 MG/0.2 ML INJ IV PUSH (08:19)
[2022-08-02] MEDS: METOPROLOL TARTRATE 50 MG TAB 100 MG PO ×2 (08:19→21:04)
[2022-08-02] MEDS: THIAMINE HCL 200 MG/2 ML VIAL 100 MG IV PUSH (08:20)
--- NOTE | 2022-08-02 08:28 | WPDINTPN ---
Progress Note: A&P Assessment and Plan (1) Encephalopathy: Code(s): G93.40 - Encephalopathy, unspecified Status: Acute Assessment and Plan: Multifactorial toxic metabolic encephalopathy patient presented with alcohol intoxication, then went to alcohol withdrawal and then received several medications which may have caused over sedation. patient now improved and is alert oriented x3. continue to hold all sedatives. Precedex infusion ordered if patient shows signs of delirium low-dose Seroquel ordered at time hold scheduled benzodiazepines hold Haldol and Zyprexa ammonia and TSH level are normal head CT was negative (2) Thrombocytopenia: Code(s): D69.6 - Thrombocytopenia, unspecified Status: Acute Assessment and Plan: likely secondary to alcohol abuse and possible liver dysfunction no signs of bleeding level is improving monitor transfuse if needed (3) Electrolyte abnormality: Code(s): E87.8 - Other disorders of electrolyte and fluid balance, not elsewhere classified Status: Acute Assessment and Plan: potassium replacement ordered (4) Transaminitis: Code(s): R74.01 - Elevation of levels of liver transaminase levels Status: Acute Assessment and Plan: elevated AST and ALT likely secondary to alcohol liver disease alk-phos is normal and bilirubin has normalized Right upper quadrant ultrasound Diffuse fatty infiltration of liver with associated hepatomegaly. Cholelithiasis. Borderline gallbladder wall thickening. Correlate clinically for acute cholecystitis. Consider HIDA scan as indicated. Viral hepatitis panel is negative Discriminant factor is low monitor (5) Alcohol abuse: Code(s): F10.10 - Alcohol abuse, uncomplicated Status: Acute Assessment and Plan: thiamine and folic acid (6) GERD (gastroesophageal reflux disease): Code(s): K21.9 - Gastro-esophageal reflux disease without esophagitis Status: Acute Assessment and Plan: PPI (7) Atrial fibrillation: Code(s): I48.91 - Unspecified atrial fibrillation Status: Acute Assessment and Plan: continue p.o. metoprolol not on any anticoagulation at baseline likely secondary to heavy alcohol abuse risk of falls and thrombocytopenia monitor p.r.n. IVLopressor ordered (8) Respiratory failure: Code(s): J96.90 - Respiratory failure, unspecified, unspecified whether with hypoxia or hypercapnia Status: Acute Assessment and Plan: patient developed hypercarbic and respiratory failure and respiratory acidosis likely secondary to sedation patient was placed on BiPAP and ABG had improved patient now awake alert oriented and refusing to wear BiPAP monitor wean oxygen check chest x-ray (9) Fever: Code(s): R50.9 - Fever, unspecified Status: Acute Assessment and Plan: check UA urine culture blood culture procalcitonin level chest x-ray remove Flowers catheter could have had aspiration when he was altered empiric Augmentin (10) Left elbow pain: Code(s): M25.522 - Pain in left elbow Status: Acute Assessment and Plan: x-ray reviewed and shows no fracture the linear radiopaque foreign body seen on the x-ray. I examined patient's arm and I did not see any abnormality. 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 Plan DVT prophylaxis - SCDs Stress ulcer prophylaxis - PPI Nutrition - diet is ordered Code Status - Full Code Subjective Date/time seen: 08/02/22 Overnight events reviewed. low-grade fever patient mental status improved overnight and he is much more awake this morning. he took off his BiPAP and refused to wear it aound 4 a.m. he is now AO x3 he states he is hurting in his elbow where he fell but denies any other complain
[2022-08-02] MEDS: AMOXICILLIN/CLAVULANATE K 875-125 MG TAB 1 TABLET PO ×2 (09:43→21:04)
[2022-08-02] MEDS: POTASSIUM CHLORIDE 20 MEQ TABLET 40 MEQ PO (09:43)
[2022-08-02 10:02] LABS: NT Pro B Type Natriuretic Pept 239 pg/mL (19.9-100)
[2022-08-02 10:07] LABS: Appearance Urine Cloudy (Clear); Bacteria Urine None Seen /hpf; Bilirubin Urine 2+ (Negative); Blood Urine 2+ (Negative); Color Urine Dark Yellow (Yellow); Glucose Urine UA Negative (Negative); Ketones Urine Trace mg/dL (Negative); Leukocyte Esterase Ur 1+ LEU/UL (Negative); Need Manual Microscopic Reviewed; Nitrate Urine Negative (Negative); Protein Urine 1+ mg/dL (Negative); RBC Urine 51-100 /hpf (0-2); Specific Grav Ur 1.025 (1.001-1.035); Squamous Epithelial Cell Urine None seen /hpf (Few); pH Urine 6.5 (5.0-9.0)
[2022-08-02 10:16] LABS: Add Urine Microscopic? YES
[2022-08-02 11:36] LABS: Procalcitonin 0.2 ng/mL
[2022-08-02 11:47] LABS: Glucose Point of Care 98 mg/dl (65-105)
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
--- NOTE | 2022-08-02 14:55 | PC.NURSE ---
This patient, Hoang Navarro, was transferred to [facility] on 08/02/22 at 1445. Personal belongings sent with patient. Report given to Laura LEO. Appropriate documentation sent with patient.
--- NOTE | 2022-08-02 15:15 | ADMGEN ---
This patient, Hoang Navarro, was admitted to Medical Room [facility] @1445. Patient/family oriented to hospital policies and general routines including ID bracelet, bed and alarms, visiting hours, pain management, procedures, bathroom and other care routines, personal items, smoking policy, room service/diet, and visiting hours. Information on how to activate the Rapid Response Team has been discussed. Patient/Family are encouraged to report perceived risks to care and to ask questions if they do not understand what they are told or what they should do.
[2022-08-02 17:27] LABS: Glucose Point of Care 105 mg/dl (65-105)
[2022-08-02] MEDS: QUEtiapine FUMARATE 25 MG TABLET PO (21:04)
[2022-08-02] MEDS: LORazepam INJ (*CRX) 2 MG/ML VIAL IV PUSH (23:27)
[2022-08-02 23:28] LABS: Glucose Point of Care 115 mg/dl (65-105)
[2022-08-03] VITALS (13 sets, daily range): BP systolic 110–151; BP diastolic 65–76; PULSE 70–94; RESP 18–20; TEMP 35.8–36.3; O2SAT 96–100
[2022-08-03 05:24] LABS: Hematocrit 34.6 % (42.0-52.0); Hemoglobin 10.8 g/dL (14.0-18.0); Immature Platelet Fraction Pct 13.8 % (0.9-11.2); Mean Corpuscular HGB Conc 31.2 g/dl (32-36); Mean Corpuscular Hemoglobin 32.5 pg (26-34); Mean Corpuscular Volume 104.2 fl (80-100); Mean Platelet Volume 13.2 fl (7.4-10.4); Platelet Count Result 53 k/mm3 (150-375); Red Blood Count 3.32 M/mm3 (4.6-6.20); Red Cell Distribution Width 15.7 % (11.5-14.5); White Blood Count 2.7 K/mm3 (4.5-10.0)
[2022-08-03 05:36] LABS: Alanine Aminotransferase 111 U/L (6-50); Albumin Level 3.5 g/dL (3.5-5.1); Alkaline Phosphatase 91 U/L (38-126); Anion Gap 3 mmol/L (8-16); Aspartate Amino Transferase 143 U/L (17-59); Bilirubin,Total 1.1 mg/dL (0.2-1.3); Blood Urea Nitrogen 11 mg/dL (9-20); Calcium 8.6 mg/dL (8.4-10.2); Carbon Dioxide 30 mmol/L (22-30); Chloride 101 mmol/L (98-107); Estimated CRCL calculation 121 ml/min; Estimated Glomerular Filt Rate > 60; Glucose 106 mg/dL (65-110); Magnesium 1.6 mg/dL (1.6-2.3); Potassium 3.1 mmol/L (3.4-5.0); Sodium 134 mmol/L (137-145)
[2022-08-03] MEDS: METOPROLOL TARTRATE 50 MG TAB 100 MG PO ×2 (10:05→20:47)
[2022-08-03] MEDS: PANTOPRAZOLE 40 MG TABLET PO ×2 (10:05→17:12)
[2022-08-03] MEDS: AMOXICILLIN/CLAVULANATE K 875-125 MG TAB 1 TABLET PO ×2 (10:06→20:47)
[2022-08-03] MEDS: DULoxetine HCL 60 MG CAPSULE.DR PO ×2 (10:06→17:12)
[2022-08-03] MEDS: THIAMINE HCL 200 MG/2 ML VIAL 100 MG IV PUSH (10:07)
[2022-08-03] MEDS: FOLIC ACID 1 MG/0.2 ML INJ IV PUSH (10:07)
[2022-08-03] MEDS: MAGNESIUM SULF 2 GM/WATER 50ML 2 GM/50 ML BAG IVPB (10:07)
[2022-08-03] MEDS: POTASSIUM CHLORIDE 20 MEQ TABLET 40 MEQ PO (10:08)
[2022-08-03 12:25] LABS: Glucose Point of Care 124 mg/dl (65-105)
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
[2022-08-03 19:02] LABS: Glucose Point of Care 106 mg/dl (65-105)
[2022-08-03] MEDS: QUEtiapine FUMARATE 25 MG TABLET PO (20:47)
[2022-08-03 21:53] LABS: Glucose Point of Care 121 mg/dl (65-105)
[2022-08-04] VITALS (8 sets, daily range): BP systolic 104–147; BP diastolic 65–71; PULSE 68–88; RESP 20; TEMP 36.6; O2SAT 97–100
[2022-08-04 05:50] LABS: Hematocrit 35.4 % (42.0-52.0); Hemoglobin 10.8 g/dL (14.0-18.0); Immature Platelet Fraction Pct 16.2 % (0.9-11.2); Mean Corpuscular HGB Conc 30.5 g/dl (32-36); Mean Corpuscular Hemoglobin 32.2 pg (26-34); Mean Corpuscular Volume 105.7 fl (80-100); Mean Platelet Volume 12.7 fl (7.4-10.4); Platelet Count Result 64 k/mm3 (150-375); Red Blood Count 3.35 M/mm3 (4.6-6.20); Red Cell Distribution Width 16.1 % (11.5-14.5); White Blood Count 3.1 K/mm3 (4.5-10.0)
[2022-08-04 05:57] LABS: Alanine Aminotransferase 113 U/L (6-50); Albumin Level 3.6 g/dL (3.5-5.1); Alkaline Phosphatase 87 U/L (38-126); Anion Gap 3 mmol/L (8-16); Aspartate Amino Transferase 123 U/L (17-59); Blood Urea Nitrogen 11 mg/dL (9-20); Calcium 8.7 mg/dL (8.4-10.2); Carbon Dioxide 32 mmol/L (22-30); Chloride 100 mmol/L (98-107); Estimated CRCL calculation 121 ml/min; Estimated Glomerular Filt Rate > 60; Glucose 130 mg/dL (65-110); Magnesium 1.8 mg/dL (1.6-2.3); Potassium 3.5 mmol/L (3.4-5.0); Sodium 135 mmol/L (137-145)
[2022-08-04 06:15] LABS: Glucose Point of Care 131 mg/dl (65-105)
[2022-08-04] MEDS: THIAMINE HCL 200 MG/2 ML VIAL 100 MG IV PUSH (09:54)
[2022-08-04] MEDS: DULoxetine HCL 60 MG CAPSULE.DR PO (09:54)
[2022-08-04] MEDS: AMOXICILLIN/CLAVULANATE K 875-125 MG TAB 1 TABLET PO (09:54)
[2022-08-04] MEDS: PANTOPRAZOLE 40 MG TABLET PO (09:54)
[2022-08-04] MEDS: FOLIC ACID 1 MG/0.2 ML INJ IV PUSH (09:54)
[2022-08-04 12:29] LABS: Glucose Point of Care 123 mg/dl (65-105)
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
[2022-08-04 17:00] LABS: Glucose Point of Care 95 mg/dl (65-105)
== END 2022-08-04 18:00 | disposition home or self-care (01) | DRG 896 ==
LOC: ANHED 19:44 → ANH3MED 21:13 → ANHICU 08-01 01:06 → ANH3MED 08-02 14:52
PROVIDERS: Emergency Medicine; Internal Medicine; Nurse Practitioner; Physician Assistant; Admitting Provider Internal Medicine; Emergency Provider Emergency Medicine; Visit Provider Family Medicine
DX: F10.229 Alcohol dependence with intoxication, unspecified (principal); G92.8 Other toxic encephalopathy; J96.92 Respiratory failure, unspecified with hypercapnia; E87.1 Hypo-osmolality and hyponatremia; K81.0 Acute cholecystitis; F10.239 Alcohol dependence with withdrawal, unspecified; S51.012A Laceration without foreign body of left elbow, initial encounter; R74.01 Elevation of levels of liver transaminase levels; I48.91 Unspecified atrial fibrillation; E87.6 Hypokalemia; K21.9 Gastro-esophageal reflux disease without esophagitis; I10 Essential (primary) hypertension; D69.6 Thrombocytopenia, unspecified; F32.A Depression, unspecified; R50.9 Fever, unspecified; E66.01 Morbid (severe) obesity due to excess calories; Z20.822 Contact with and (suspected) exposure to COVID-19; Z68.38 Body mass index [BMI] 38.0-38.9, adult; Y90.8 Blood alcohol level of 240 mg/100 ml or more; Z91.81 History of falling; W18.30XA Fall on same level, unspecified, initial encounter
CPT/HCPCS: 12001; 36415; 36600; 70450; 71045; 71046; 73080; 76705; 80048; 80053; 80074; 80307; 81001; 82140; 82805; 82948; 83735; 83880; 84145; 84443; 85025; 85027; 85055; 85610; 87040; 87086; 87637; 93005; 94002; 96361; 96365; 96366; 96372; 96375; 96376; 97110; 97161; 97165; 97530; 97535; 99285; A9270; G0378; J0131; J1630; J1885; J2060; J2405; J3411; J3475; J3480; J7030; J7040

== ENCOUNTER 2023-05-06 15:41 | Emergency (ER) | payer OTHER, SELFPAY ==
--- NOTE | ~2023-05-06 | CT_ITS ---
EXAMINATION: CT cervical spine wo con DATE: 05/06/2023 16:51 INDICATION: fall TECHNIQUE: Computed tomography (CT) of the cervical spine was performed without intravenous contrast. Automated exposure control and iterative reconstruction technique were employed. The dose-length pro duct was 583.87 mGy-cm. COMPARISON: None. FINDINGS: Vertebral Body Alignment: Intact. Cervical straightening. Craniocervical and atlantoaxial alignment: Moderate degenerative change. Alignment intact. Osseous structures/fracture: No evidence of a lytic or blastic process in the visualized spine. No e vidence of acute fracture. Bilateral facet fusion at C2-3 and C3-4. Cervical soft tissues: The paraspinal soft tissues planes are maintained. Degenerative changes: Multilevel moderate degenerative disc disease. Severe degenerative disc change at C4-5 with vacuum phenomenon. Multilevel facet arthropathy. IMPRESSION: No acute fracture or traumatic malalignment in the cervical spine. Reviewed, dictated and finalized at location [employer]
--- NOTE | ~2023-05-06 | CT_ITS ---
EXAMINATION: CT brain wo con DATE: 05/06/2023 16:50 INDICATION: fall . TECHNIQUE: Computed tomography (CT) of the head was performed without intravenous contrast. The mA wa s adjusted according to patient size. Iterative reconstruction technique was employed. The dose-lengt h product was 681.00 mGy-cm. COMPARISON: 07/21/2022. FINDINGS: No acute intracranial hemorrhage or extra-axial fluid collection. No hydrocephalus, mass, or herniation. No acute ischemic infarct. Unremarkable dural venous sinus attenuation. No acute osseous abnormality. Large frontal laceration. The aerated spaces are clear. Mild atrophy and chronic white matter change. Atherosclerotic intracranial calcification. Bilateral l ens replacements. IMPRESSION: No acute intracranial process. Reviewed, dictated and finalized at location [facility]. [employer]
[2023-05-06 16:24] VITALS: BP 154/58; PULSE 76; RESP 16; TEMP 36.5; O2SAT 95
--- NOTE | 2023-05-06 19:55 | ED.FALL ---
HPI - Fall General Chief Complaint: Fall Stated Complaint: GLF Time Seen by Provider: 05/06/23 18:57 History of Present Illness HPI Narrative: Patient is a 72-year-old male presenting with head injury. Patient states that he was getting out of his recliner this evening and his ankle got caught causing him to fall forward striking his forehead on the fireplace hearth. he did not lose consciousness. States he sustained a large laceration. No neck or back pain. Denies further injuries. States his tetanus is up-to-date. He is not on anticoagulation. Related Data Home Medications Medication Instructions Recorded Confirmed duloxetine 60 mg capsule,delayed 60 mg PO BID 02/20/22 07/29/22 release metoprolol tartrate 100 mg tablet 100 mg PO BID 02/20/22 07/29/22 omeprazole 20 mg capsule,delayed 20 mg PO BID 02/20/22 07/29/22 release pregabalin 200 mg capsule 200 mg PO TID 07/30/22 07/30/22 Allergies Allergy/AdvReac Type Severity Reaction Status Date / Time No Known Allergies Allergy Unknown Unverified 09/28/17 11:57 Review of Systems Review of Systems: All systems reviewed & are unremarkable except as noted in HPI and below PMFSH Past Medical History Medical History Atrial fibrillation BPH (benign prostatic hyperplasia) GERD (gastroesophageal reflux disease) Hypertension Seizures Surgical History Surgical History History of appendectomy Family History Family History Mother Cancer Grandparent Cerebrovascular accident Social History Social History Social History: Patient currently lives at home with his Kimberly. I would suspect this would be his surrogate. Patient is currently a full code. Smoking status: Never smoker Alcohol intake: current Drinks per week: 60 Alcohol use details: unknown, strong history of ETOH abuse Substance use: unknown Lack of Transportation: No Lack of Food: Never True Current Housing: Decline to Answer Concerned About Future Housing: Decline to Answer Difficulty Paying Gas/Electric Bills: Decline to Answer Difficulty Paying for Meds: Decline to Answer Currently Unemployed: Decline to Answer Education: High School Diploma/GED Difficulty w/ Childcare or Family Care: Decline to Answer Living arrangements: with family Occupation/Education: retired Gender identity (if verbalized by the patient): Male Sexual Orientation (if Verbalized by the Patient): Straight or Heterosexual Spiritual care concerns: No Agree to blood products: Yes Exam Narrative: GENERAL: Well appearing, no acute distress, pleasant cooperative HEAD: Normocephalic, 5 cm laceration upper mid forehead EYES: PERRLA and EOMI. ENT: grossly unremarkable NECK: Supple. no midline tenderness CHEST: No respiratory distress. HEART: Regular rate and rhythm EXTREMITIES: Normal range of motion. SKIN: Warm, dry, no rash. NEURO: Alert and oriented x3. PSYCH: Normal mood and affect. Course Vital Signs Vital signs: Vital Signs Temperature 97.7 F 05/06/23 16:24 Pulse Rate 76 05/06/23 16:24 Respiratory Rate 16 05/06/23 16:24 Blood Pressure 154/58 H 05/06/23 16:24 Pulse Oximetry 95 05/06/23 16:24 Oxygen Delivery Room Air 05/06/23 16:24 Temperature 97.7 F 05/06/23 16:24 Pulse Rate 84 05/06/23 21:58 Respiratory Rate 20 05/06/23 21:58 Blood Pressure 154/58 H 05/06/23 16:24 Pulse Oximetry 100 05/06/23 21:58 Oxygen Delivery Room Air 05/06/23 16:24 Procedures Laceration Laceration 1: Date: 05/06/23 Time: 21:35 Site: scalp and face Size (cm): 5 Description: linear Depth: simple, single layer and involves muscle layer Local Anesthetic: lidoca
[2023-05-06] MEDS: LIDO 1%/EPINEPHRINE 1:100,000 20 ML VIAL (21:53)
[2023-05-06] MEDS: CEPHALEXIN 500 MG CAPSULE PO (21:53)
[2023-05-06 21:58] VITALS: PULSE 84; RESP 20; O2SAT 100
== END 2023-05-06 21:59 | disposition home or self-care (01) ==
PROVIDERS: Emergency Provider Emergency Medicine; PCP Family Medicine
DX: S01.81XA Laceration without foreign body of other part of head, initial encounter (principal); I48.91 Unspecified atrial fibrillation; I10 Essential (primary) hypertension; N40.0 Benign prostatic hyperplasia without lower urinary tract symptoms; K21.9 Gastro-esophageal reflux disease without esophagitis; W06.XXXA Fall from bed, initial encounter
CPT/HCPCS: 12052; 70450; 72125; 99284; A9270

== ENCOUNTER 2023-08-12 02:09 | Day surgery (SDC) | payer OTHER, SELFPAY ==
[2023-08-04 10:41] VITALS: BMI 39.7
--- NOTE | 2023-08-10 09:00 | SUR.OPER ---
Patient called regarding upcoming procedure. Voicemail left regarding appointment times.
[2023-08-12 07:09] VITALS: BP 148/76; PULSE 72; RESP 20; TEMP 35.8; O2SAT 95; BMI 41.5
[2023-08-12] MEDS: LACTATED RINGERS 1,000 ML 150 ML IV CONT (07:12)
--- NOTE | 2023-08-12 08:05 | PM.HPGS ---
History of Present Illness History of Present Illness Consent: Risks, benefits, and alternatives have been discussed and questions answered. Patient agrees to proceed with procedure. Chief complaint: neoplasm screening Narrative: Hoang Navarro is a 72 year old male here for screening colonoscopy, last one about 5 years ago Review of Systems Review of Systems: All systems reviewed & are unremarkable except as noted in HPI and below PMFSH Past Medical History Medical History (Updated 08/12/23 @ 08:06 by Yasmani Pollard MD) Atrial fibrillation BPH (benign prostatic hyperplasia) Colon cancer screening GERD (gastroesophageal reflux disease) Hypertension Seizures Surgical History Surgical History History of appendectomy Family History Family History Mother Cancer Grandparent Cerebrovascular accident Social History Social History Social History: Patient currently lives at home with his Kimberly. I would suspect this would be his surrogate. Patient is currently a full code. Smoking status: Never smoker Smokeless tobacco user: chewing tobacco Additional smoking assessment comments: NEVER SMOKED BUT CHEWED WHILE IN THE Alcohol intake: current Drinks per week: 60 Alcohol use details: unknown, strong history of ETOH abuse Substance use: former Substance use type: does not use Other substance usage details: ETOH HOSP. ADM. 07/31/2022 Lack of Transportation: No Lack of Food: Never True Current Housing: Decline to Answer Concerned About Future Housing: Decline to Answer Difficulty Paying Gas/Electric Bills: Decline to Answer Difficulty Paying for Meds: Decline to Answer Currently Unemployed: Decline to Answer Education: High School Diploma/GED Difficulty w/ Childcare or Family Care: Decline to Answer Living arrangements: with family Occupation/Education: retired Gender identity (if verbalized by the patient): Male Sexual Orientation (if Verbalized by the Patient): Straight or Heterosexual Spiritual care concerns: No Agree to blood products: Yes Meds Home Medications and Allergies Home Medications Medication Instructions Recorded Confirmed Type duloxetine 60 mg capsule,delayed 60 mg PO BID 02/20/22 08/12/23 History release metoprolol tartrate 100 mg tablet 100 mg PO BID 02/20/22 08/12/23 History omeprazole 20 mg capsule,delayed 20 mg PO BID 02/20/22 08/12/23 History release pregabalin 200 mg capsule 200 mg PO TID 07/30/22 08/12/23 History multivitamin with minerals 1 tablet PO DAILY #30 tabs 08/04/22 08/12/23 Rx (Multiple Vitamin-Minerals tablet) Iron 28 mg PO DAILY 08/04/23 08/12/23 History aripiprazole 10 mg tablet 10 mg PO DAILY 08/04/23 08/12/23 History celecoxib 200 mg capsule 200 mg PO BID 08/04/23 08/12/23 History copper 2 mg tablet 2 mg PO DAILY 08/04/23 08/12/23 History cyanocobalamin (vitamin B-12) 1,000 mcg IM MONTHLY 08/04/23 08/12/23 History 1,000 mcg/mL injection solution folic acid 800 mcg tablet 0.8 mg PO DAILY 08/04/23 08/12/23 History pyridoxine (vitamin B6) 100 mg 100 mg PO DAILY 08/04/23 08/12/23 History tablet torsemide 10 mg tablet 10 mg PO DAILY 08/04/23 08/12/23 History Allergies Allergy/AdvReac Type Severity Reaction Status Date / Time No Known Allergies Allergy Unknown Verified 08/12/23 07:07 Vital Signs Vital Signs - 24 hr 08/12/23 07:09 Temperature 96.5 F L Pulse Rate 72 Respiratory Rate 20 Blood Pressure 148/76 H Pulse Oximetry 95 Oxygen Delivery Room Air Exam Const: General: comfortable and no acute distress HENMT: Face/Nose/Sinus: Normal nares present Eyes: General: appearance normal, both eyes and all related structures Neck: Neck: no JVD Resp: Auscultation: clear to auscultation tabatha
--- NOTE | 2023-08-12 08:06 | P.PNAN_ITS ---
Anes - Initial Pre Proc Eval Procedure: Operation Date: 08/12/23 08:30 Proposed Procedures p Screening Colonoscopy - Yasmani Pollard MD Date/Time: 08/12/23 08:06 Surgeon: Yasmani Pollard MD Pre Op Diagnosis: neoplasm screening Patient Data Age: 72 Gender: M Height: 1.96 m Weight: 158.9 kg Last Vital Signs Temp 96.5 F L 08/12/23 07:09 Pulse 72 08/12/23 07:09 Resp 20 08/12/23 07:09 BP 148/76 H 08/12/23 07:09 Pulse Ox 95 08/12/23 07:09 O2 Del Method Room Air 08/12/23 07:09 Allergies Allergy/AdvReac Type Severity Reaction Status Date / Time No Known Allergies Allergy Unknown Verified 08/12/23 07:07 Home Medications Medication Instructions Recorded Confirmed Type duloxetine 60 mg capsule,delayed 60 mg PO BID 02/20/22 08/12/23 History release metoprolol tartrate 100 mg tablet 100 mg PO BID 02/20/22 08/12/23 History omeprazole 20 mg capsule,delayed 20 mg PO BID 02/20/22 08/12/23 History release pregabalin 200 mg capsule 200 mg PO TID 07/30/22 08/12/23 History multivitamin with minerals 1 tablet PO DAILY #30 tabs 08/04/22 08/12/23 Rx (Multiple Vitamin-Minerals tablet) Iron 28 mg PO DAILY 08/04/23 08/12/23 History aripiprazole 10 mg tablet 10 mg PO DAILY 08/04/23 08/12/23 History celecoxib 200 mg capsule 200 mg PO BID 08/04/23 08/12/23 History copper 2 mg tablet 2 mg PO DAILY 08/04/23 08/12/23 History cyanocobalamin (vitamin B-12) 1,000 mcg IM MONTHLY 08/04/23 08/12/23 History 1,000 mcg/mL injection solution folic acid 800 mcg tablet 0.8 mg PO DAILY 08/04/23 08/12/23 History pyridoxine (vitamin B6) 100 mg 100 mg PO DAILY 08/04/23 08/12/23 History tablet torsemide 10 mg tablet 10 mg PO DAILY 08/04/23 08/12/23 History Patient hx anesthesia problems: none Family hx anesthesia problems: none Results Review: All pre-operative results and documents have been reviewed as part of the pre- operative evaluation. [facility] Past Medical History Medical History Atrial fibrillation BPH (benign prostatic hyperplasia) GERD (gastroesophageal reflux disease) Hypertension Seizures Surgical History Surgical History History of appendectomy Family History Family History Mother Cancer Grandparent Cerebrovascular accident Social History Social History Social History: Patient currently lives at home with his Kimberly. I would suspect this would be his surrogate. Patient is currently a full code. Smoking status: Never smoker Smokeless tobacco user: chewing tobacco Additional smoking assessment comments: NEVER SMOKED BUT CHEWED WHILE IN THE Alcohol intake: current Drinks per week: 60 Alcohol use details: unknown, strong history of ETOH abuse Substance use: former Substance use type: does not use Other substance usage details: ETOH HOSP. ADM. 07/31/2022 Lack of Transportation: No Lack of Food: Never True Current Housing: Decline to Answer Concerned About Future Housing:
[2023-08-12 08:33] VITALS: BP 114/63; PULSE 57; RESP 20; O2SAT 97
[2023-08-12 08:43] VITALS: BP 120/66; PULSE 70; RESP 19; O2SAT 98
[2023-08-12 08:53] VITALS: BP 131/71; PULSE 60; RESP 18; O2SAT 99
== END 2023-08-12 09:00 | disposition home or self-care (01) ==
PROVIDERS: PCP Family Medicine; Visit Provider Internal Medicine Gastroenterology
PROC: 0DJD8ZZ Inspection of Lower Intestinal Tract, Via Natural or Artificial Opening Endoscopic (ICD-10-PCS; CPT 45378; principal; 2023-08-12 08:30)
DX: Z12.11 Encounter for screening for malignant neoplasm of colon (principal); D12.2 Benign neoplasm of ascending colon; D12.3 Benign neoplasm of transverse colon; K63.5 Polyp of colon; K57.30 Diverticulosis of large intestine without perforation or abscess without bleeding; I10 Essential (primary) hypertension; N40.0 Benign prostatic hyperplasia without lower urinary tract symptoms; K21.9 Gastro-esophageal reflux disease without esophagitis; F17.220 Nicotine dependence, chewing tobacco, uncomplicated; E66.01 Morbid (severe) obesity due to excess calories; Z68.41 Body mass index [BMI] 40.0-44.9, adult; Z98.890 Other specified postprocedural states; Z86.79 Personal history of other diseases of the circulatory system; Z80.9 Family history of malignant neoplasm, unspecified; Z82.49 Family history of ischemic heart disease and other diseases of the circulatory system
CPT/HCPCS: 45385; 45380; 88305; J2704; J7120

== ENCOUNTER 2023-11-16 04:11 | Emergency (ER) | payer OTHER, SELFPAY ==
[2023-11-16] VITALS (10 sets, daily range): BP systolic 130–172; BP diastolic 87–90; PULSE 64–77; RESP 17–20; TEMP 36.4; O2SAT 93–96
--- NOTE | ~2023-11-16 | XR_ITS ---
EXAMINATION: XR hip RT 2V w AP pelvis DATE: 11/16/2023 04:54 INDICATION: Right hip pain. Right gluteus pain. TECHNIQUE: An anteroposterior view of the pelvis and 2 views of right hip were obtained. COMPARISON: None. FINDINGS: Bone alignment is normal. No fracture. There is severe osteoarthritis of the hips. IMPRESSION: 1. Severe osteoarthritis of the hips. Reviewed, dictated and finalized at location E.
--- NOTE | 2023-11-16 04:31 | ED.GENADULT ---
HPI - General Adult General Chief complaint: Extremity Injury, Lower Stated complaint: R hip pain Time Seen by Provider: 11/16/23 04:15 History of Present Illness HPI narrative: This is a 73-year-old male presenting with right hip/glute pain. It is an achy pain that is nonradiating, worse with movement. He has been able to walk although that causes some discomfort. No pain or weakness In any other muscle groups. Patient denies any trauma or falls. No redness or swelling at the site of pain. Related Data Home Medications Medication Instructions Recorded Confirmed duloxetine 60 mg capsule,delayed 60 mg PO BID 02/20/22 08/12/23 release metoprolol tartrate 100 mg tablet 100 mg PO BID 02/20/22 08/12/23 omeprazole 20 mg capsule,delayed 20 mg PO BID 02/20/22 08/12/23 release pregabalin 200 mg capsule 200 mg PO TID 07/30/22 08/12/23 Iron 28 mg PO DAILY 08/04/23 08/12/23 aripiprazole 10 mg tablet 10 mg PO DAILY 08/04/23 08/12/23 celecoxib 200 mg capsule 200 mg PO BID 08/04/23 08/12/23 copper 2 mg tablet 2 mg PO DAILY 08/04/23 08/12/23 cyanocobalamin (vitamin B-12) 1,000 mcg IM MONTHLY 08/04/23 08/12/23 1,000 mcg/mL injection solution folic acid 800 mcg tablet 0.8 mg PO DAILY 08/04/23 08/12/23 pyridoxine (vitamin B6) 100 mg 100 mg PO DAILY 08/04/23 08/12/23 tablet torsemide 10 mg tablet 10 mg PO DAILY 08/04/23 08/12/23 Allergies Allergy/AdvReac Type Severity Reaction Status Date / Time No Known Allergies Allergy Unknown Verified 11/16/23 04:23 [facility] Past Medical History Medical History (Updated 11/16/23 @ 05:21 by Sudhir Topete MD) Atrial fibrillation BPH (benign prostatic hyperplasia) Colon cancer screening GERD (gastroesophageal reflux disease) Hypertension Seizures Surgical History Surgical History History of appendectomy Family History Family History Mother Cancer Grandparent Cerebrovascular accident Social History Social History Social History: Patient currently lives at home with his Kimberly. I would suspect this would be his surrogate. Patient is currently a full code. Smoking status: Never smoker Smokeless tobacco user: chewing tobacco Additional smoking assessment comments: NEVER SMOKED BUT CHEWED WHILE IN THE Alcohol intake: current Drinks per week: 60 Alcohol use details: unknown, strong history of ETOH abuse Substance use: former Substance use type: does not use Other substance usage details: ETOH HOSP. ADM. 07/31/2022 Lack of Transportation: No Lack of Food: Never True Current Housing: Decline to Answer Concerned About Future Housing: Decline to Answer Difficulty Paying Gas/Electric Bills: Decline to Answer Difficulty Paying for Meds: Decline to Answer Currently Unemployed: Decline to Answer Education: High School Diploma/GED Difficulty w/ Childcare or Family Care: Decline to Answer Living arrangements: with family Occupation/Education: retired Gender identity (if verbalized by the patient): Male Sexual Orientation (if Verbalized by the Patient): Straight or Heterosexual Spiritual care concerns: No Agree to blood products: Yes Exam Narrative: APPEARANCE: No apparent distress. Head: atraumatic. EYES: EOMI, NOSE: Atraumatic NECK: Trachea midline RESPIRATORY: No increased rate of breathing CARDIOVASCULAR: RRR, ABDOMINAL: Non-distended MUSCULOSKELETAl: Tenderness to palpation over the right gluteal muscles. No overlying skin changes. Patient is able to ambulate NEURO: Alert. Moving 4/4 extremities SKIN:: Warm, dry. Normal color PSYCHIATRIC: Normal affect Course Vital Signs Vital signs: Vital Signs Temperature 97.5 F L 11/16/23 04:17 Pulse Rate 77 11/16/23 04:17 Respiratory Rate 20 11/16/23 04:17 [facility]oo
[2023-11-16] MEDS: methocarbamoL 750 MG TABLET PO (04:34)
[2023-11-16] MEDS: ACETAMINOPHEN 500 MG TABLET 1000 MG PO (04:34)
[2023-11-16] MEDS: LIDOCAINE 5% PATCH 1 PATCH TRANSDERM (04:34)
[2023-11-16] MEDS: KETOROLAC 30 MG/ML VIAL (*BKC) IM (04:34)
--- NOTE | 2023-11-16 04:44 | PC.NURSE ---
Patient taken to xray via stretcher at this time.
[2023-11-16 04:46] LABS: Basophils Percent Auto 0.4 % (0.2-1.2); Eosinophils Absolute Auto 0.2 K/mm3 (0-0.3); Eosinophils Percent Auto 3.5 % (0-4.4); Hematocrit 46.5 % (42.0-52.0); Hemoglobin 14.6 g/dL (14.0-18.0); Immature Granulocyte Absolute 0.02 K/mm3 (0.00-0.031); Immature Granulocyte Percent A 0.4 % (0-0.5); Immature Platelet Fraction Pct 16.4 % (0.9-11.2); Lymphocytes Absolute Auto 1.22 K/mm3 (0.9-3.2); Lymphocytes Percent Auto 22.6 % (18.3-44.2); Mean Corpuscular HGB Conc 31.4 g/dl (32-36); Mean Platelet Volume 14.1 fl (7.4-10.4); Monocytes Absolute Auto 0.5 K/mm3 (0.1-0.6); Monocytes Percent Auto 9.5 % (2.6-8.5); Neutrophils Absolute Auto 3.4 K/mm3 (1.3-6.7); Neutrophils Percent Auto 63.6 % (45.5-73.1); Platelet Count Result 108 k/mm3 (150-375); Red Blood Count 4.43 M/mm3 (4.6-6.20); Red Cell Distribution Width 14.8 % (11.5-14.5); White Blood Count 5.4 K/mm3 (4.5-10.0)
[2023-11-16 04:55] LABS: Alanine Aminotransferase 21 U/L (6-50); Albumin Level 4.5 g/dL (3.5-5.1); Alkaline Phosphatase 118 U/L (38-126); Anion Gap 8 mmol/L (4-12); Aspartate Amino Transferase 30 U/L (17-59); Bilirubin,Total 0.7 mg/dL (0.2-1.3); Blood Urea Nitrogen 23 mg/dL (9-20); Carbon Dioxide 30 mmol/L (22-30); Chloride 102 mmol/L (98-107); Creatine Kinase 89 U/L (55-170); Estimated CRCL calculation 80 ml/min; Estimated Glomerular Filt Rate 60; Ethanol < 10 mg/dL (<10); Glucose 175 mg/dL (65-110); Potassium 4.3 mmol/L (3.4-5.0); Sodium 140 mmol/L (137-145)
== END 2023-11-16 05:38 | disposition home or self-care (01) ==
PROVIDERS: Emergency Provider Emergency Medicine; PCP Family Medicine
DX: S76.011A Strain of muscle, fascia and tendon of right hip, initial encounter (principal); M19.90 Unspecified osteoarthritis, unspecified site; I48.91 Unspecified atrial fibrillation; N40.0 Benign prostatic hyperplasia without lower urinary tract symptoms; K21.9 Gastro-esophageal reflux disease without esophagitis; I10 Essential (primary) hypertension; G40.909 Epilepsy, unspecified, not intractable, without status epilepticus; X58.XXXA Exposure to other specified factors, initial encounter
CPT/HCPCS: 36415; 73502; 80053; 80307; 82550; 85025; 85055; 96372; 99283; A9270; J1885

== ENCOUNTER 2023-12-07 08:04 | Outpatient (CLI) | payer OTHER, SELFPAY ==
--- NOTE | ~2023-12-07 | MR_ITS ---
MRI of the lumbar spine Clinical History: Back pain Technique: Axial T2-weighted images, and sagittal T1-weighted, T2-weighted, and T2 fat-sat images wer e acquired. Findings: There is acute probable insufficiency fracture of the right sacrum, partially imaged.. Ther e is probable chronic L1 compression fracture and vertebroplasty cement. No other bone marrow signal abnormality seen. At L1-L2, there is no disc bulge or herniation. There is moderate facet arthropathy. No central canal stenosis or neural foraminal narrowing. At L2-L3, there is minimal disc bulge with moderate facet arthropathy. No central canal stenosis or n eural foraminal narrowing. At L3-L4, there is no disc bulge or herniation. There is moderate facet arthropathy. No central canal stenosis or neural foraminal narrowing. At L4-L5, there is mild disc bulge with advanced facet arthropathy. No central canal stenosis or neur al foraminal narrowing. At L5-S1, there is moderate degenerative disc narrowing. There is mild disc bulge with severe facet a rthropathy. No central canal stenosis. There is minimal bilateral neural foraminal narrowing. Paravertebral soft tissues are unremarkable. Impression: Probable acute insufficiency fracture the right sacrum, incompletely imaged on this exam. 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 Mild degenerative spondylosis, as above. Reviewed, dictated and finalized at [facility]. Impression: Probable acute insufficiency fracture the right sacrum, incompletely imaged on this exam. 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 Mild degenerative spondylosis, as above.
== END 2023-12-07 08:05 ==
LOC: MICIMG 08:05
PROVIDERS: PCP Family Medicine; Visit Provider Family Medicine
DX: M54.42 Lumbago with sciatica, left side (principal); M48.56XA Collapsed vertebra, not elsewhere classified, lumbar region, initial encounter for fracture; M43.06 Spondylolysis, lumbar region; G89.29 Other chronic pain
CPT/HCPCS: 72148